=== PATIENT | male | born 1980 | race African-American/Black ===

== ENCOUNTER 2017-01-02 12:11 | Emergency (ER) | payer SELFPAY ==
[~2017-01-02] VITALS: Ht 175.3 cm; Wt 88.5 kg
[2017-01-02 12:25] VITALS: BP 141/63
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
--- NOTE | 2017-01-02 13:16 | RAD ---
Examination: 2 views of the lumbar spine History: History of back pain Comparison: None available Findings: The vertebral body heights are maintained. No evidence of listhesis. Impression: No acute osseous findings
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
[2017-01-02] MEDS ORDERED: CYCL10TA2 PO (14:02)
[2017-01-02] MEDS ORDERED: NAPR500T8 PO (14:02)
== END 2017-01-02 14:10 | disposition home or self-care (01) ==
LOC: ER 12:11
DX: S13.4XXA Sprain of ligaments of cervical spine, initial encounter (principal); M54.5 Low back pain; R20.0 Anesthesia of skin; M79.642 Pain in left hand; F14.10 Cocaine abuse, uncomplicated; V43.62XA Car passenger injured in collision with other type car in traffic accident, initial encounter; Y93.89 Activity, other specified; Y92.410 Unspecified street and highway as the place of occurrence of the external cause; Y99.8 Other external cause status
CPT/HCPCS: 72040; 72100; 73130; 99284

== ENCOUNTER 2019-02-06 17:04 | Emergency (ER) | payer SELFPAY ==
[~2019-02-06] VITALS: Ht 182.9 cm; Wt 88.5 kg
[~2019-02-06 17:04] MED LIST: CYCL10TA2 PO; NAPR500T8 PO
[2019-02-06 17:10] VITALS: BP 150/80
[2019-02-06] MEDS ORDERED: IV NORMAL SALINE 1000ML BAG 1,000 ML IV SCH (17:16)
--- NOTE | 2019-02-06 17:27 | PHYS DOC ---
Past Medical History Past Medical History: No Pertinent History Past Surgical History: No Surgical History Alcohol Use: Occasionally Drug Use: Cocaine Adult General Chief Complaint Chief Complaint: CHEST PAIN HPI HPI Patient is a 39 year old male who presents with chest pain and shortness of air started at 0700 this morning. Patient states it is a pressure and a burning to his mid chest. Patient states he ate baked chicken earlier. Patient is a smoker and also states he used MJ last week. Patient rates his discomfort at a 6/10. Review of Systems Review of Systems Respiratory: cough or shortness of breath [] Cardiovascular: Mid chest pressure and burning All other systems were reviewed and found to be within normal limits, except as documented in this note. Current Medications Current Medications Current Medications Medications (Trade) Dose Ordered Sig/Robinson Start Time Stop Time Status Last Admin Dose Admin Famotidine (Pepcid Vial) 20 mg 1X ONCE 02/06/19 17:30 02/06/19 17:31 DC 02/06/19 17:40 20 MG Ketorolac Tromethamine (Toradol 30mg Vial) 30 mg 1X ONCE 02/06/19 18:15 02/06/19 18:16 DC 02/06/19 18:14 30 MG Sodium Chloride 1,000 ml @ 1,000 mls/hr Q1H 02/06/19 17:16 02/06/19 18:15 DC 02/06/19 17:41 1,000 MLS/HR Allergies Allergies Allergies Coded Allergies Type Severity Reaction Last Updated Verified No Known Drug Allergies 01/02/17 No Physical Exam Physical Exam Constitutional: Well developed, well nourished, no acute distress, non-toxic appearance. [] HENT: Normocephalic, atraumatic, bilateral external ears normal, oropharynx moist, no oral exudates, nose normal. [] Eyes: PERRLA, EOMI, conjunctiva normal, no discharge. [] Neck: Normal range of motion, no tenderness, supple, no stridor. [] Cardiovascular:Heart rate regular rhythm, no murmur [] Lungs & Thorax: Bilateral breath sounds clear to auscultation [] Abdomen: Bowel sounds normal, soft, no tenderness, no masses, no pulsatile masses. [] Skin: Warm, dry, no erythema, no rash. [] Back: No tenderness, no CVA tenderness. [] Extremities: No tenderness, no cyanosis, no clubbing, ROM intact, no edema. [] Neurologic: Alert and oriented X 3, normal motor function, normal sensory function, no focal deficits noted. [] Psychologic: Affect normal, judgement normal, mood normal. Normal Physical Exam[] Current Patient Data Vital Signs Vital Signs Date Time Temp Pulse Resp B/P (MAP) Pulse Ox O2 Delivery O2 Flow Rate FiO2 02/06/19 17:10 98.9 83 18 150/80 (103) 97 Room Air 98.9 Lab Values Laboratory Tests Test 02/06/19 17:20 White Blood Count 7.2 x10^3/uL (4.0-11.0) Red Blood Count 4.71 x10^6/uL (4.30-5.70) Hemoglobin 14.1 g/dL (13.0-17.5) Hematocrit 42.7 % (39.0-53.0) Mean Corpuscular Volume 91 fL (79-100) Mean Corpuscular Hemoglobin 30 pg (25-35) Mean Corpuscular Hemoglobin Concent 33 g/dL (31-37) Red Cell Distribution Width 14.3 % (11.5-14.5) Platelet Count 291 x10^3/uL (140-400) Neutrophils (%) (Auto) 63 % (31-73) Lymphocytes (%) (Auto) 28 % (24-48) Monocytes (%) (Auto) 8 % (0-9) Eosinophils (%) (Auto) 2 % (0-3) Basophils (%) (Auto) 1 % (0-3) Neutrophils # (Auto) 4.5 x10^3/uL (1.8-7.7) Lymphocytes # (Auto) 2.0 x10^3/uL (1.0-4.8) Monocytes # (Auto) 0.5 x10^3/uL (0.0-1.1) Eosinophils # (Auto) 0.1 x10^3/uL (0.0-0.7) Basophils # (Auto) 0.1 x10^3/uL (0.0-0.2) D-Dimer (Estrella) 0.37 ug/mlFEU (0.00-0.50) Sodium Level 142 mmol/L (136-145) Potassium Level 3.9 mmol/L (3.5-5.1) Chloride Level 108 mmol/L (98-107) H Carbon Dioxide Level 24 mmol/L (21-32) Anion Gap 10 (6-14) Blood Urea Nitrogen 16 mg/dL (8-26) Creatinine 1.3 mg/dL (0.7-1.3) Estimated GFR (Cockcroft-Gault) 74.8 BUN/Creatinine Ratio 12 (6-20) Glucose Level 106 mg/dL (70-99) H Calcium Level 9.1 mg/dL (8.5-10.1) Total Bilirubin 0.2 mg/dL (0.2-1.0) Aspartate Amino Transferase (AST) 26 U/L (15-37) Alanine Aminotransferase (ALT) 36 U/L (16-63) Alkaline Phosphatase 58 U/L (46-116) Troponin I Quantitative < 0.017 ng/mL (0.000-0.055) Total Protein 7.5 g/dL (6.4-8.2) Albumin 3.6 g/dL (3.4-5.0) Albumin/Globulin Ratio 0.9 (1.0-1.7) L Laboratory Tests 02/06/19 17:20 Laboratory Tests 02/06/19 17:20 EKG EKG Normal Sinus Rhythm and no STEMI[] Interpretation Time: [address] Guo Radiology/Procedures Radiology/Procedures [] Impressions: [facility] [address] [place] [address] IMAGING REPORT Signed PATIENT: TEDDY TOBIAS ACCOUNT: [id number] : 1980 LOCATION: ER AGE: 39 SEX: M EXAM STATUS: REG ER ORD. PHYSICIAN: ELIZA CABRERA APRN REASON: soa PROCEDURE: CHEST PA & LATERAL Chest PA and lateral: Reason for examination: Short of breath with chest pain on inspiration. The heart size is normal. Mediastinum is unremarkable. Lung dee are clear. No acute bony abnormalities are seen. Impression: No acute cardiopulmonary disease. Electronically signed by: Francisco Bonilla MD (02/06/2019 5:48 PM) [facility] DICTATED and SIGNED BY: FRANCISCO BONILLA MD DATE: 02/06/191747 Course & Med Decision Making Course & Med Decision Making Alert and oriented. Skin pink warm and dry. Ambulatory unsteady gait. Patient states when he is moving her takes a deep breath he has pain. There is pain with palpation to the chest. Patient states the pain is in the mid chest and does not radiate. Speaks in full clear sentences. No extremity swelling. Vital signs wnl. Afebrile. He states last week he was sick with a cold and had been coughing but that he is better. Patient denies dizziness, headache, visual changes, numbness or tingling, weakness, abdominal pain, nausea, vomiting, fever, diarrhea. Patient refusing breathing treatment. Blood work unremarkable. This is likely musculoskeletal pain due to pain with movement and taking a deep breath, also the fact that I can reproduce pain with palpation to the chest. Ddimer is negative. Heart score a 1. Patient to follow up with primary care provider. Dragon Disclaimer Dragon Disclaimer This electronic medical record was generated, in whole or in part, using a voice recognition dictation system. The HEART Score for CP Pts HEART Score for Chest Pain: HEART Score for Chest Pain Response (Comments) Value History Slighlty/Non-Suspicious 0 ECG Normal 0 Age < 45 0 Risk Factors 1 or 2 Risk Factors 1 Troponin < Normal Limit 0 Total 1 Risk Factors: Risk Factors: DM, Current or recent (<one month) smoker, HTN, HLP, family history of CAD, obesity. Risk Scores: Score 0 - 3: 2.5% MACE over next 6 weeks - Discharge Home Score 4 - 6: 20.3% MACE over next 6 weeks - Admit for Clinical Observation Score 7 - 10: 72.7% MACE over next 6 weeks - Early Invasive Strategies Departure Departure Impression: Primary Impression: Chest wall pain Disposition: HOME, SELF-CARE Condition: STABLE Referrals: NO PCP (PCP) Patient Instructions: Chest Wall Pain, [id number] Additional Instructions: Follow up with primary care provider. Take medications as prescribed. Scripts Methylprednisolone (MEDROL) 4 Mg Tab.ds.pk 1 PKG PO UD, #1 PKG Prov: ELIZA CABRERA FRENCH BINDER 02/06/19 Ibuprofen (IBUPROFEN) 600 Mg Tablet 600 MG PO PRN Q6HRS PRN for INFLAMMATION, #20 TAB Prov: ELIZA CABRERA FRENCH BINDER 02/06/19 Albuterol Sulfate (PROAIR HFA INHALER) 8.5 Gm Hfa.aer.ad 1 PUFF INH PRN Q6HRS PRN for SHORTNESS OF BREATH, #1 INHALER 0 Refills Prov: ELIZA CABRERA APRN 02/06/19 ELIZA CABRERA APRN Feb 06, 2019 17:27
[2019-02-06] MEDS ORDERED: FAMOTIDINE 20 MG/2 ML VIAL IVP ONE (17:30)
[2019-02-06 17:44] LABS: BASO # 0.1 x10^3/uL (0.0-0.2); BASO % 1 % (0-3); EOS # 0.1 x10^3/uL (0.0-0.7); EOS % 2 % (0-3); HEMATOCRIT 42.7 % (39.0-53.0); HEMOGLOBIN 14.1 g/dL (13.0-17.5); LYMPH % 28 % (24-48); MEAN CORPUSCULAR HEMOGLOBIN 30 pg (25-35); MEAN CORPUSCULAR HGB CONC 33 g/dL (31-37); MEAN CORPUSCULAR VOLUME 91 fL (79-100); MONO # 0.5 x10^3/uL (0.0-1.1); MONO % 8 % (0-9); NEUT # 4.5 x10^3/uL (1.8-7.7); NEUT % 63 % (31-73); PLATELET COUNT 291 x10^3/uL (140-400); RED BLOOD COUNT 4.71 x10^6/uL (4.30-5.70); RED CELL DISTRIBUTION WIDTH 14.3 % (11.5-14.5); WHITE BLOOD COUNT 7.2 x10^3/uL (4.0-11.0)
--- NOTE | 2019-02-06 17:51 | RAD ---
Chest PA and lateral: Reason for examination: Short of breath with chest pain on inspiration. The heart size is normal. Mediastinum is unremarkable. Lung dee are clear. No acute bony abnormalities are seen. Impression: No acute cardiopulmonary disease. Electronically signed by: Elizabeth Mike MD (02/06/2019 5:48 PM) [facility]
[2019-02-06 17:53] LABS: CALCIUM 9.1 mg/dL (8.5-10.1); CREATININE 1.3 mg/dL (0.7-1.3); GFR 74.8; POTASSIUM 3.9 mmol/L (3.5-5.1)
[2019-02-06 17:59] LABS: ALBUMIN 3.6 g/dL (3.4-5.0); ALBUMIN/GLOBULIN RATIO 0.9 (1.0-1.7); TOTAL BILIRUBIN 0.2 mg/dL (0.2-1.0); TOTAL PROTEIN 7.5 g/dL (6.4-8.2)
[2019-02-06] MEDS ORDERED: KETOROLAC 30 MG/ML VIAL. IVP ONE (18:15)
[2019-02-06] MEDS ORDERED: IBUP-1007 PO (18:21)
[2019-02-06] MEDS ORDERED: ALBU2.5V8 INH (18:21)
[2019-02-06] MEDS ORDERED: METH4TAB2 PO (18:25)
--- NOTE | 2019-02-07 08:45 | EKG ---
[facility] [address] [place] [address] Test Date: 2019-02-06 Test Time: 17:16:43 Pat Name: TEDDY TOBIAS Department: Room: Gender: M Engineering Lecturer: : 1980 Requested By: ELIZA CABRERA Order Number: [id number] Reading MD: Measurements Intervals Evant Rate: 83 P: 49 NE: 158 QRS: 5 QRSD: 88 T: 28 QT: 334 QTc: 397 Interpretive Statements SINUS RHYTHM NORMAL ECG No previous ECG available for comparison
== END 2019-02-06 18:57 | disposition home or self-care (01) ==
LOC: ER 17:04
DX: R07.89 Other chest pain (principal); R06.02 Shortness of breath; F14.90 Cocaine use, unspecified, uncomplicated; Z72.89 Other problems related to lifestyle
CPT/HCPCS: 36415; 71046; 80053; 84484; 85025; 85379; 93005; 96374; 96375; 99285; J1885; J3490; J7030